=== PATIENT | female | born 1990 | race American Indian/Alaskan Native ===

== ENCOUNTER 2019-10-02 09:44 | Emergency (ER) | payer SELFPAY ==
[2019-10-02 10:28] LABS: Bacteria,Urine 1+ /HPF (Negative); Bilirubin,Urine NEG (Negative); Blood,Urine NEG (Negative); Color,Urine Yellow (Yellow); Mucus,Urine FEW /HPF; Protein,Urine <15 mg/dL mg/dL (Negative); Urobilinogen,Urine < 2.0 mg/dL (<2.0)
[2019-10-02 11:12] LABS: Basophils # (Auto) 0.1 K/mm3 (0.0-0.1); Eosinophils # (Auto) 0.1 K/mm3 (0.0-0.4); Eosinophils % (Auto) 1.3 % (0.0-4.3); Hematocrit 38.2 % (30.3-42.9); Hemoglobin 12.3 gm/dl (10.1-14.3); Lymphocytes # (Auto) 2.1 K/mm3 (1.2-5.4); Lymphocytes % (Auto) 23.4 % (13.4-35.0); Mean Corpuscular HGB Conc 32 % (30-34); Mean Corpuscular Volume 74 fl (79-97); Monocytes # (Auto) 0.5 K/mm3 (0.0-0.8); Monocytes % (Auto) 5.5 % (0.0-7.3); Platelet Count 279 K/mm3 (140-440); Red Blood Count 5.13 M/mm3 (3.65-5.03); Red Cell Distribution Width 16.8 % (13.2-15.2)
[2019-10-02 11:37] LABS: Alanine Aminotransferase 19 units/L (7-56); BUN/Creatinine Ratio 12; Blood Urea Nitrogen 11 mg/dL (7-17); Calcium 9.2 mg/dL (8.4-10.2); Hemolysis Index 60
--- NOTE | 2019-10-02 12:29 | Emergency Department Report ---
ED General Adult HPI - General Chief complaint: Abdominal Pain Stated complaint: STOMACH PAIN Time Seen by Provider: 10/02/19 12:03 Source: patient Mode of arrival: Ambulatory Limitations: No Limitations - History of Present Illness Initial comments: 29-year-old [place] female presents emergency department complaining of a 3 to 4-month. A menorrhea of unknown etiology associated with occasional mild pelvic cramps and morning sickness. Reports no fever, chills, sweats, no hematuria, no dysuria no hematemesis no hematochezia no constipation no diarrhea no known history any gynecological disorders or process. - Related Data Allergies Allergy/AdvReac Type Severity Reaction Status Date / Time No Known Allergies Allergy Verified 10/02/19 09:51 ED Review of Systems ROS: Stated complaint: STOMACH PAIN Other details as noted in HPI Comment: All other systems reviewed and negative ED Past Medical Hx - Past Medical History Previous Medical History?: No - Surgical History Past Surgical History?: No - Social History Smoking Status: Never Smoker Substance Use Type: None ED Physical Exam - General Limitations: No Limitations General appearance: alert, in no apparent distress - Head Head exam: Present: atraumatic, normocephalic - Eye Eye exam: Present: normal appearance, PERRL, EOMI Pupils: Present: normal accommodation - ENT ENT exam: Present: normal exam, normal orophraynx, mucous membranes moist - Neck Neck exam: Present: normal inspection, full ROM - Respiratory Respiratory exam: Present: normal lung sounds bilaterally. Absent: respiratory distress, wheezes, rales, chest wall tenderness, accessory muscle use - Cardiovascular Cardiovascular Exam: Present: regular rate, normal rhythm. Absent: systolic murmur, diastolic murmur, rubs, gallop - GI/Abdominal GI/Abdominal exam: Present: soft, normal bowel sounds - Extremities Exam Extremities exam: Present: normal inspection - Back Exam Back exam: Present: normal inspection - Neurological Exam Neurological exam: Present: alert, oriented X3, CN II-XII intact, normal gait - Psychiatric Psychiatric exam: Present: normal affect, normal mood. Absent: anxious - Skin Skin exam: Present: warm, dry, intact, normal color. Absent: rash ED Medical Decision Making - Lab Data Result diagrams: 10/02/19 10:24 10/02/19 10:24 - Medical Decision Making 29-year-old female presents emergency department complaining of a mid menorrhea for 3 to 4 months. Was found to have a negative serum test. Reports that she is in no pain has no vaginal bleeding no vaginal discharge no no dysuria no flank pain does have a a.m. nausea but no active vomiting. She is kaitlynn dynamically stable no distress states that she simply wanted to make sure that she was not she did has had 2- urine test at home. She understands the need for for for follow-up to determine the reason of for a menorrhea we discussed the low likelihood of an ultrasound being needed at some point of which she did express an understanding. Critical care attestation.: If time is entered above; I have spent that time in minutes in the direct care of this critically ill patient, excluding procedure time. ED Disposition Clinical Impression: Amenorrhea Disposition: DC-01 TO HOME OR SELFCARE Is pt being admited?: No Does the pt Need Aspirin: No Condition: Stable Instructions: Abdominal Pain (ED) Referrals: [facility] [Primary Care Provider] - 3-5 Days [facility] [Provider Group] - 3-5 Days
== END 2019-10-02 12:56 | disposition home or self-care (01) ==
LOC: ED 09:44
DX: N91.2 Amenorrhea, unspecified (principal); Z79.899 Other long term (current) drug therapy
CPT/HCPCS: 36415; 80053; 81001; 84703; 85025; 87086; 99283

== ENCOUNTER 2020-07-31 17:02 | Emergency (ER) | payer SELFPAY ==
[2020-07-31 17:43] VITALS: BP 135/82
[2020-07-31] MEDS ORDERED: ACETAMINOPHEN 500 MG TAB PO ONE (17:46)
--- NOTE | 2020-07-31 17:48 | Event Note ---
ED Screening Note Date of service: 07/31/20 Time: 17:46 ED Screening Note: Patient is a A0 30-year-old -[place] female who is approximately 6 weeks gestation and with no past medical history presents to the ED with complaint of acute onset persistent pelvic pain and heavy vaginal bleeding for the last 2 hours. Patient states that the pain and the bleeding has worsened since the onset. Patient denies fall, traumatic injury, dizziness, syncope, chest pain, shortness of breath, diarrhea, nausea and vomiting, fever, chills, dysuria, low back pain or vaginal discharge. This initial assessment/diagnostic orders/clinical plan/treatment(s) is/are subject to change based on patients health status, clinical progression and re- assessment by fellow clinical providers in the ED. Further treatment and workup at subsequent clinical providers discretion. Patient/guardian urged not to elope from the ED as their condition may be serious if not clinically assessed and managed. Initial orders include: CBC, CMP, hCG quant, UA, transvaginal ultrasound
[2020-07-31 18:08] LABS: Basophils # (Auto) 0.1 K/mm3 (0.0-0.1); Basophils % (Auto) 0.5 % (0.0-1.8); Eosinophils # (Auto) 0.1 K/mm3 (0.0-0.4); Eosinophils % (Auto) 1.3 % (0.0-4.3); Hemoglobin 12.4 gm/dl (10.1-14.3); Lymphocytes # (Auto) 2.1 K/mm3 (1.2-5.4); Lymphocytes % (Auto) 20.7 % (13.4-35.0); Mean Corpuscular HGB Conc 33 % (30-34); Mean Corpuscular Volume 75 fl (79-97); Monocytes # (Auto) 0.5 K/mm3 (0.0-0.8); Monocytes % (Auto) 5.3 % (0.0-7.3); Platelet Count 309 K/mm3 (140-440); Red Blood Count 5.06 M/mm3 (3.65-5.03); Red Cell Distribution Width 16.6 % (13.2-15.2)
[2020-07-31 18:26] LABS: Alanine Aminotransferase 13 units/L (7-56); Albumin 4.2 g/dL (3.9-5); BUN/Creatinine Ratio 9; Blood Urea Nitrogen 8 mg/dL (7-17); Hemolysis Index 17
[2020-07-31 18:55] LABS: Bacteria,Urine 1+ /HPF (Negative); Bilirubin,Urine NEG (Negative); Blood,Urine LG (Negative); Color,Urine Yellow (Yellow); Mucus,Urine FEW /HPF; Protein,Urine <15 mg/dL mg/dL (Negative); Urobilinogen,Urine < 2.0 mg/dL (<2.0)
--- NOTE | 2020-07-31 20:31 | Ultrasound Report ---
ULTRASOUND OBSTETRIC INDICATION / CLINICAL INFORMATION: pelvic pain, vaginal bleeding, . Clinical Gestational Age (GA): 6.4 weeks.days TECHNIQUE: Transabdominal. COMPARISON: None available. FINDINGS: UTERUS: No intrauterine is visualized. Uterus measures 8.5 x 3.6 x 4.1 cm. Endometrial thic kness is 11 mm in this premenopausal patient. ADNEXA: No significant abnormality. FREE FLUID: None. ADDITIONAL FINDINGS: None. IMPRESSION: 1. No intrauterine is identified. Bilateral adnexa demonstrate no significant abnormality. Consider further evaluation with serial beta hCG and follow-up ultrasound, as warranted. Signer Name: David Ferguson MD Signed: 07/31/2020 8:26 PM Workstation Name: [id number]
== END 2020-07-31 18:00 | disposition left against medical advice (07) ==
LOC: ED 17:02
DX: O20.8 Other hemorrhage in early pregnancy (principal); O26.891 Other specified pregnancy related conditions, first trimester; R10.2 Pelvic and perineal pain; Z3A.01 Less than 8 weeks gestation of pregnancy; Z53.21 Procedure and treatment not carried out due to patient leaving prior to being seen by health care provider
CPT/HCPCS: 36415; 76801; 80053; 81001; 84702; 85025; 86900; 86901; 87076; 87086; 87186